=== PATIENT | female | born 1965 | race Caucasian/White ===

== ENCOUNTER 2017-11-06 12:27 | Emergency (ER) | payer BC ==
[2017-11-06 15:14] LABS: ADD MAN DIFF? NO
[2017-11-06 15:28] LABS: BASOPHILS % 0.3 % (0.0-2.0); EOSINOPHILS % 0.2 % (0.0-7.0); HEMATOCRIT 45.1 % (37.0-47.0); HEMOGLOBIN 15.1 g/dl (12.0-16.0); LYMPHOCYTES # 1.7 10^3/ul (0.8-2.9); LYMPHOCYTES % 28.3 % (15.0-51.0); MEAN CORPUSCULAR HEMOGLOBIN 30.6 pg (29.0-33.0); MEAN CORPUSCULAR HGB CONC 33.5 g/dl (32.0-37.0); MEAN CORPUSCULAR VOLUME 91.3 fl (82.0-101.0); MEAN PLATELET VOLUME 11.3 fl (7.4-10.4); MONOCYTE # 0.4 10^3/ul (0.3-0.9); NEUTROPHIL # 3.8 10^3/ul (1.6-7.5); PLATELET COUNT 273 10^3/UL (140-415); RED BLOOD COUNT 4.94 10^6/ul (4.20-5.40); RED CELL DISTRIBUTION WIDTH 12.3 % (11.5-14.5)
[2017-11-06 15:28] LABS: WHITE BLOOD COUNT 5.8 10^3/ul (4.8-10.8)
[2017-11-06 15:35] LABS: ANION GAP 15 (8-16); BLOOD UREA NITROGEN 14 mg/dl (7-20); CALCIUM 10.3 mg/dl (8.4-10.2); CARBON DIOXIDE 30 mmol/L (21-31); CHLORIDE 104 mmol/L (97-110); CREATININE 0.78 mg/dl (0.44-1.00); GLUCOSE 85 mg/dl (70-220); POTASSIUM 4.2 mmol/L (3.5-5.1); SODIUM 145 mmol/L (135-144)
[2017-11-06 15:48] LABS: TROPONIN-I < 0.012 ng/ml (0.000-0.120)
[2017-11-06 15:50] LABS: INR 0.96; PARTIAL THROMBOPLASTIN TIME 29.1 Sec (25.0-35.0); PROTIME 12.9 Sec (11.9-14.9)
[2017-11-06 16:20] LABS: D-DIMER < 220.00 ng/ml (<460)
== END 2017-11-06 17:17 | disposition home or self-care (01) ==
LOC: FTE 12:27
DX: M79.602 Pain in left arm (principal); R68.84 Jaw pain; R07.9 Chest pain, unspecified
CPT/HCPCS: 36415; 71045; 80048; 84484; 85025; 85378; 85610; 85730; 93005; 99285-25